=== PATIENT | male | born 2000 | race Native Hawaiian/Other Pacific Islander ===

== ENCOUNTER 2023-02-19 15:24 | Emergency (ER) | payer OTHER, SELFPAY ==
[2023-02-19 16:31] VITALS: BP 100/61; PULSE 67; RESP 16; TEMP 37.2; O2SAT 97; BMI 21.1
--- NOTE | 2023-02-19 16:40 | ED.GENADULT ---
HPI - General Adult General Chief complaint: Headache Stated complaint: migraine Time Seen by Provider: 02/19/23 16:44 Source: patient Mode of arrival: ambulatory Limitations: no limitations History of Present Illness HPI narrative: 23 year old male w/ no significant pmhx presents to the ED today for complaints of a headache. He states that when it first presented he had some nausea and dizziness both of which resolved. He denies any history of headaches. He describes it as a constant pain/pressure. It begins in the back of the head and wraps around to the forehead. He also endorses pressure behind his eye that had caused some blurry vision. He has not tried any Tylenol/NSAIDs for relief. He denies any fever, chills, vomiting, abdominal pain, chest pain, SOB, neck pain, back pain, and ear or sinus pain. Onset (ago): day(s) (1) Location: head Severity: mild Quality: dull Pain Consistency: constant Relieving factors: medication Treatments prior to arrival: none Related Data Allergies Allergy/AdvReac Type Severity Reaction Status Date / Time acetaminophen Allergy Anaphylaxis Verified 02/19/23 16:31 latex AdvReac Rash Verified 02/19/23 16:31 Review of Systems Review of Systems: Yes all other systems are reviewed and are negative PMFSH Social History Social History Advance Directives: No Advance Directives Information Provided: Yes Physical Exam ED Vital Signs: Vital Signs - 24 hr 02/19/23 16:31 Temperature 98.9 F Pulse Rate 67 Respiratory Rate 16 Blood Pressure 100/61 Pulse Oximetry 97 Oxygen Delivery Method Room Air BMI result Body Mass Index 21.1 Appearance: Alert. Oriented X3. No acute distress. Head: normocephalic, atraumatic. Eyes: Pupils equal, round and reactive to light. Neck: Normal inspection. Neck supple. CVS: Normal heart rate and rhythm. Respiratory: No respiratory distress. Skin: Skin warm and dry. Normal skin color. Normal skin turgor. No rashes. Extremities: No lower extremity edema. No joint swelling. Neuro/psych: Oriented X 3. No motor deficit. No sensory deficit. CN II-XII intact. Normal speech and cognition. Course Course Course Narrative: RME- 23-year-old male presents for evaluation of posterior headache. Symptoms started at 3:00 a.m. this morning. He is well-appearing, negative neuro exam. Medications Administered Discontinued Medications Generic Name Dose Route Start Last Admin Trade Name Shanice PRN Reason Stop Dose Admin Ketorolac Tromethamine 30 mg 02/19/23 16:48 02/19/23 16:51 Ketorolac Tromethamine 30 Mg/Ml Vial IM 02/19/23 16:49 30 mg ONCE ONE Administration Medical Decision Making Medical Decision Making MDM Narrative: 23 year old male w/ no significant pmhx presents to the ED today for complaints of a headache. On exam VSS and NAD, no red flag symptoms, and no signs of injury or trauma. Likely, a tension headache. Unlikely, SAH, cluster headache, migraine w/ aura, no neck/pain or fever to suggest meningitis. Comfortable on exam and responded well to NSAIDS. Comfortable for discharge home. Plan: supportive care, decrease life stressors, follow up w/ PCP Differential Diagnosis Differential Diagnoses: The differential diagnosis associated with the presentation includes SAH, cluster headache, migraine w/ aura, no neck/pain or fever to suggest meningitis Tests considered The following testing was considered but not selected: considered CT Head given no history of migraines Prescription Management I considered prescription management with: Pain Medication Critical Care Time Critical Care Time Critical Care Time: No Discharge Plan Discharge Clinical Impression: Tension headache Patient Disposition: Home, Self-Care Instructions: Tension Headache (ED) Additional Instructions: You presented today to the emergency room with complaints of a headache. Your symptoms responded well to treatment with NSAIDs. As we discussed try to limit the amount of stress in your life as they can trigger these kind of headaches. You can use Tylenol/NSAIDs for symptomatic relief. If your symptoms worsen, you have the worst headache of your life, vision loss, or a high fever please return to the emergency room. Stand Alone Forms: Work/School Release Interventions: ED Discharge Assessment Last Done: 02/19/23 18:37 Discharge Date/Time: 02/19/23 18:37
[2023-02-19] MEDS: Ketorolac Tromethamine 30 MG/ML VIAL IM (16:51)
== END 2023-02-19 18:37 | disposition home or self-care (01) ==
PROVIDERS: Emergency Provider Emergency Medicine Emergency Medical Services
DX: G44.209 Tension-type headache, unspecified, not intractable (principal)
CPT/HCPCS: 96372; 99283; J1885

== ENCOUNTER 2023-12-19 23:38 | Emergency (ER) | payer OTHER, SELFPAY ==
--- NOTE | ~2023-12-19 | XR_ITS ---
EXAMINATION: XR CHEST CLINICAL INFORMATION: Right-sided chest discomfort. COMPARISON: None available. TECHNIQUE: 2 views of the chest were obtained. FINDINGS: No significant abnormality is noted involving the heart, lungs, mediastinum, bony thorax or soft tissues. XR/XR chest 2V IMPRESSION: Unremarkable examination.
[2023-12-19 23:56] VITALS: BP 131/85; PULSE 81; RESP 19; TEMP 37.9; O2SAT 97; BMI 20.5
[2023-12-20 00:15] LABS: Hematocrit 43.5 % (42.0-52.0); Hemoglobin 14.7 g/dl (14.0-18.0); Mean Corpuscular HGB Conc 33.8 g/dl (31.0-36.0); Mean Corpuscular Hemoglobin 27.4 pg (27.0-33.0); Mean Corpuscular Volume 81.2 fL (80.0-98.0); Platelet Count 167 X10*3/uL (160-400); Red Blood Count 5.36 X10*6/uL (4.60-5.80); White Blood Count 4.1 X10*3/uL (4.8-10.8)
[2023-12-20 00:30] LABS: Alanine Aminotransferase 28 U/L (0-40); Albumin Level 4.6 g/dL (3.5-5.0); Alkaline Phosphatase 85 U/L (39-117); Anion Gap 16 (12-20); Aspartate Amino Transferase 37 U/L (5-37); Bilirubin Total 0.7 mg/dL (0.0-1.0); Blood Urea Nitrogen 17 mg/dL (9-16); Calcium 9.2 mg/dL (8.4-10.2); Carbon Dioxide 26 mmol/L (22-29); Chloride 99 mmol/L (96-108); Creatinine Clr Calc Pharmacy 99.3; Estimated Glomerular Filt Rate > 60; Glucose Random 93 mg/dL (60-115); Potassium 3.6 mmol/L (3.3-5.1); Sodium 137 mmol/L (135-145); Total Protein 7.8 g/dL (6.5-8.0)
[2023-12-20 00:51] LABS: Influenza A PCR NEGATIVE (Negative); Influenza B PCR NEGATIVE (Negative); Resp Syncy Virus RNA Qual PCR NEGATIVE (Negative); SARS COV2 PCR INHOUSE NEGATIVE (Negative)
[2023-12-20 01:52] VITALS: BP 131/66; PULSE 66; RESP 16; TEMP 38.8; O2SAT 97
[2023-12-20] MEDS: Ibuprofen 400 MG TABLET PO (03:08)
[2023-12-20 04:13] VITALS: BP 117/65; PULSE 65; RESP 16; TEMP 37.6; O2SAT 97
--- NOTE | 2023-12-20 04:21 | ED_ITS ---
[facility] - General Adult General Chief complaint: General Medical Stated complaint: cough, nauseau, body aches Time Seen by Provider: 12/20/23 02:39 Source: patient and family Mode of arrival: ambulatory History of Present Illness ED Provider: Dr Kiran [facility] narrative: 23-year-old male with presentation for right-sided armpit abscess, body aches, nausea 3 episodes of vomiting, cough, an episode of diarrhea and dizziness. Patient denies any sore throat or ear pain. Patient is a current everyday smoker. Related Data Allergies Allergy/AdvReac Type Severity Reaction Status Date / Time acetaminophen Allergy Anaphylaxis Verified 12/20/23 00:00 latex AdvReac Rash Verified 12/20/23 00:00 Review of Systems 2 Review of Systems: Pertinent positives and negatives as stated in [facility] Past Medical History Source: nursing notes reviewed Social History Social History Smoked in Last 30 Days: No Advance Directives: No Advance Directives Information Provided: Yes Do you have a plan to hurt others: No Plan Physical Exam ED Vital Signs: Vital Signs - 24 hr 12/19/23 23:56 12/20/23 01:52 12/20/23 04:13 Temperature 100.3 F 101.9 F H 99.7 F Pulse Rate 81 66 65 Respiratory Rate 19 16 16 Blood Pressure 131/85 131/66 117/65 Pulse Oximetry 97 97 97 Oxygen Delivery Method Room Air Room Air BMI result Body Mass Index 20.5 VITAL SIGNS: Reviewed. GENERAL: Well developed, well nourished, in no acute distress. HEAD: Normocephalic/atraumatic EYES: PERRLA, EOMI EARS: Ext canals without abnormality, TMs non-bulging and non-erythematous NOSE: Nares patent bilateral OROPHARYNX: no oral lesions noted, posterior pharynx clear and non-erythematous without noted tonsillar enlargement/erythema/exudates NECK: Supple, no adenopathy LUNGS: Normal breath sounds. No adventitious sounds or accessory muscle use. SpO2<97> CARDIOVASCULAR: Regular rate and rhythm without noted murmurs ABDOMEN: Soft, non-tender, non-distended with bowel sounds. MUSCULOSKELETAL: No tenderness, deformities, or effusions noted on gross inspection. EXTREMITIES: No cyanosis, clubbing or edema. SKIN: Inspection of the skin reveals no rashes NEUROLOGIC: Alert and oriented x 4. Strength and sensation to light touch were grossly intact x 4. Medications Administered Discontinued Medications Generic Name Dose Route Start Last Admin Trade Name Freq PRN Reason Stop Dose Admin Ibuprofen 400 mg 12/20/23 02:40 12/20/23 03:08 Ibuprofen 400 Mg Tablet PO 12/20/23 02:41 400 mg ONCE ONE Administration Medical Decision Making Medical Decision Making [facility] Narrative: 23-year-old male with history and clinical presentation, DDX: Viral illness, pneumonia intervention: anti-pyretics I reviewed all investigations and hematologic indices demonstrate a mild leukopenia without anemia or thrombocytopenia. Chemistry indices are negative for RUDI or electrolyte/liver enzyme derangements. Viral testing is negative for influenza/RSV/COVID-19. Signed out to Dr Loera - f/u CXR Differential Diagnosis Differential Diagnoses: The differential diagnosis associated with the presentation includes Please see the discussion above Admission/Observation Consideration of admission/observation: Escalation of care including admission/observation considered Please see the discussion above Lab Data [facility] Lab Attestation statement: I reviewed the patient's lab results. Please see the discussion above 12/20/23 00:10 12/20/23 00:10 Labs: Lab Results 12/20/23 Range/Units 00:10 WBC 4.1 L (4.8-10.8) X10*3/uL RBC 5.36 (4.60-5.80) X10*6/uL Hgb 14.7 (14.0-18.0) g/dl Hct 43.5 (42.0-52.0) % MCV 81.2 (80.0-98.0) fL MCH 27.4 (27.0-33.0) pg MCHC 33.8 (31.0-36.0) g/dl RDW 12.0 (11.0-16.0) % Plt Count 167 (160-400) X10*3/uL MPV 9.0 L (9.4-12.4) fL Absolute Nucleated RBC 0.000 (0.0-0.012) X10*3/uL Nucleated RBC % (auto) 0.0 (0.0-0.2) /100WBC Sodium 137 (135-145) mmol/L Potassium 3.6 (3.3-5.1) mmol/L Chloride 99 (96-108) mmol/L Carbon Dioxide 26 (22-29) mmol/L Anion Gap 16 (12-20) BUN 17 H (9-16) mg/dL Creatinine 0.93 (0.5-1.4) mg/dL Estim Creat Clear Calc 99.3 Estimated GFR > 60 Random Glucose 93 (60-115) mg/dL Calcium 9.2 (8.4-10.2) mg/dL Total Bilirubin 0.7 (0.0-1.0) mg/dL AST 37 (5-37) U/L ALT 28 (0-40) U/L Alkaline Phosphatase 85 (39-117) U/L Total Protein 7.8 (6.5-8.0) g/dL Albumin 4.6 (3.5-5.0) g/dL Influenza Type A (PCR) NEGATIVE (Negative) Influenza Type B (PCR) NEGATIVE (Negative) RSV RNA Qual (PCR) NEGATIVE (Negative) SARS-CoV-2 RNA (RT-PCR) NEGATIVE (Negative) Discharge Plan Discharge Clinical Impression: Viral syndrome Patient Disposition: Still a Patient Instructions: Viral Syndrome (ED) Print Language: Yoruba
[2023-12-20] MEDS: Lidocaine HCl 1 % 20 ML VIAL 5 ML INFILTRATI (09:09)
[2023-12-20 09:52] VITALS: BP 117/65; PULSE 65; RESP 16; TEMP 37.6; O2SAT 97
[2023-12-20] MEDS: cephALEXin 500 MG CAPSULE PO (09:59)
== END 2023-12-20 09:58 | disposition home or self-care (01) ==
PROVIDERS: Student in an Organized Health Care Education/Training Program; Emergency Provider Emergency Medicine
DX: B34.9 Viral infection, unspecified (principal); R05.9 Cough, unspecified; R11.2 Nausea with vomiting, unspecified; M79.10 Myalgia, unspecified site; Z03.818 Encounter for observation for suspected exposure to other biological agents ruled out; Z79.899 Other long term (current) drug therapy
CPT/HCPCS: 0241U; 71046; 80053; 85027; 87070; 87077; 87186; 87205; 99284